=== PATIENT | female | born 1945 | race Caucasian/White ===

== ENCOUNTER 2020-02-04 18:34 | Emergency (ER) | payer MEDICARE, OTHER ==
[2020-02-04] MEDS ORDERED: Lidocaine 1% w/Epinephrine 1:100K 30 ML VIAL ONE (18:44)
[2020-02-04] MEDS ORDERED: Adacel (T-DAP) 0.5 ML SYRINGE ONE (19:07)
== END 2020-02-04 19:16 | disposition home or self-care (01) ==
LOC: BURERS 18:34
DX: S81.811A Laceration without foreign body, right lower leg, initial encounter (principal); Z23 Encounter for immunization; W18.41XA Slipping, tripping and stumbling without falling due to stepping on object, initial encounter
CPT/HCPCS: 12002; 90471; 90715; J2001

== ENCOUNTER 2020-05-12 07:49 | Outpatient (CLI) | payer MEDICARE, OTHER ==
[2020-05-12] MEDS ORDERED: Iopamidol 370 76% 100 ML VIAL ONE (11:41)
--- NOTE | 2020-05-12 15:18 | CT ---
CTA AORTIC DISSECTION: DATE: 05/12/2020. COMPARISON: Comparison is made with a 02/08/2017 CT of the chest. FINDINGS: Today's exam was a CT angio covering the entire chest and abdomen and upper pelvis through the bifurc ation of the aorta. Multiplanar MIP reconstructed images were evaluated afterwards. Aortic measurements follow. All are measured in the AP dimension. Ascending aorta 3.6 cm Proximal descending aorta 5.2 cm Lower descending thoracic aorta 5.2 cm Abdominal aorta at level of left renal artery origin 3.0 cm. Lower aorta just above bifurcation 1.9 cm. The celiac, SMA, GILDARDO, and both renal arteries appear to fill normally. There is no sign of aortic di ssection. The patient appears to have had a stent placed beginning in the distal aortic arch through the mid to lower descending thoracic aorta. The lungs are clear, except for some dependent atelectasis, mainly in the lung bases. No focal pulmo nary mass of concern was found. There are no effusions. The upper abdominal organs, including the liver, spleen, pancreas, and adrenal glands showed no acute findings. There has been a prior cholecystectomy. An exophytic 2 cm cyst is seen in the upper pole of the right kidney and there are some calcifications in the upper pole of this kidney. There is no hydronephrosis or ureteral dilation. The visible portions of the bowel were unremarkable. No loops were dilated or thickened. A few colo gilbert diverticula are noted, predominantly in the left colon. There is very minor anterolisthesis of L5 on S1 with at least right-sided spondylolysis. Facet arthr itis is prominent in this level. IMPRESSION: 1. Decrease in size of the ascending aorta. Dilated descending aorta has not changed much in size. There were no adverse changes of concern in the interval. 2. Major vessels originating from the aorta seem to fill appropriately. 3. Small right renal cyst and also some nonobstructing right renal calcifications. 4. 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 POS: HOME
== END 2020-05-12 07:50 | disposition home or self-care (01) ==
LOC: BURCT 07:49
PROVIDERS: ATTEND Surgery
DX: I71.2 Thoracic aortic aneurysm, without rupture (principal); N28.1 Cyst of kidney, acquired; N28.89 Other specified disorders of kidney and ureter; M47.816 Spondylosis without myelopathy or radiculopathy, lumbar region
CPT/HCPCS: 71275; 72191; 74175; Q9967